=== PATIENT | female | born 1970 | race Caucasian/White ===

== ENCOUNTER → 2017-03-24 | Outpatient (CLI) | payer BC ==
--- NOTE | 2017-03-25 09:37 | MM ---
Reason for exam: screening (asymptomatic). Baseline mammogram. Physical Findings: Nurse did not find any significant physical abnormalities on exam. MG Screening Mammo w CAD Bilateral CC and MLO view(s) were taken. The breast tissue is heterogeneously dense. This may lower the sensitivity of mammography. Partially visualized generator device left chest wall. Nodular asymmetry central right breast seen on MLO view. These results were verbally communicated with the patient and result sheet given to the patient on 03/24/17. ASSESSMENT: Incomplete: need additional imaging evaluation, BI-RAD 0 RECOMMENDATION: Special view mammogram of the right breast. If lesion persists on supplemental views, image directed ultrasound is recommended. [facility] will attempt to contact patient to return for supplemental views and ultrasound if indicated.
--- NOTE | 2017-03-25 09:39 | MM ---
Reason for exam: additional evaluation requested from abnormal screening. Physical Findings: Breast exam preformed at baseline screening. MG Work Up Mamm w CAD RT LM and spot compression MLO view(s) were taken of the right breast. The breast tissue is heterogeneously dense. This may lower the sensitivity of mammography. The questioned nodular asymmetry becomes less defined. A precautionary 6 month follow up is recommended. These results were verbally communicated with the patient and result sheet given to the patient on 03/24/17. ASSESSMENT: Probably benign, BI-RAD 3 RECOMMENDATION: Follow-up diagnostic mammogram of the right breast in 6 months.
== END | disposition home or self-care (01) ==
LOC: RADMAMWWP 13:43
PROVIDERS: ATTEND Obstetrics & Gynecology
DX: Z12.31 Encounter for screening mammogram for malignant neoplasm of breast (principal); R92.8 Other abnormal and inconclusive findings on diagnostic imaging of breast
CPT/HCPCS: G0202; G0206

== ENCOUNTER → 2017-03-31 | Outpatient (CLI) | payer BC | END | disposition home or self-care (01) | LOC: LABWHC1 11:31 | PROVIDERS: ATTEND Obstetrics & Gynecology | DX: Z13.220 Encounter for screening for lipoid disorders (principal); Z13.1 Encounter for screening for diabetes mellitus | CPT/HCPCS: 36415; 80061; 82947; 84439; 84443 ==

== ENCOUNTER → 2019-11-07 | Outpatient (CLI) | payer BC ==
--- NOTE | 2019-11-12 09:26 | MM ---
Reason for exam: screening (asymptomatic). Last mammogram was performed 2 years and 7 months ago. Physical Findings: A clinical breast exam by your physician is recommended on an annual basis and results should be correlated with mammographic findings. MG Screening Mammo w CAD Bilateral CC and MLO view(s) were taken. Prior study comparison: March 24, 2017, bilateral MG screening mammo w CAD. March 24, 2017, right breast MG work up mamm w CAD RT. The breast tissue is heterogeneously dense. This may lower the sensitivity of mammography. No suspicious abnormality. No significant changes when compared with prior studies. ASSESSMENT: Negative, BI-RAD 1 RECOMMENDATION: Routine screening mammogram of both breasts in 1 year.
== END ==
LOC: RADMAMWWP 11:35
PROVIDERS: ATTEND Family Medicine
DX: Z12.31 Encounter for screening mammogram for malignant neoplasm of breast (principal)
CPT/HCPCS: 77067

== ENCOUNTER 2020-04-25 18:49 | Emergency (ER) | payer BC ==
[2020-04-25] MEDS ORDERED: IBUPROFEN 600 MG TAB PO STA (19:22)
--- NOTE | 2020-04-25 20:05 | XR ---
EXAMINATION TYPE: XR ankle complete bilateral DATE OF EXAM: 04/25/2020 COMPARISON: NONE HISTORY: Ankle pain TECHNIQUE: 3 views each ankle FINDINGS: The left ankle joint appears intact. There is soft tissue swelling over the lateral malleol us of the left ankle. There is a trimalleolar fracture of the right ankle. There is posterior dislocation of the talus on t he lateral view. There is an Achilles calcaneal spur. There are small plantar calcaneal spur. IMPRESSION: There is posterior fracture dislocation of the right ankle with trimalleolar fracture. No fracture seen of the left ankle.
[2020-04-25] MEDS ORDERED: PROPOFOL 10 MG/ML 20 ML VIAL IV ONE (20:31)
[2020-04-25] MEDS ORDERED: MORPHINE SULFATE 4 MG/ML SYRINGE IVP STA (20:34)
--- NOTE | 2020-04-25 20:37 | ED ---
Lower Extremity Injury HPI <Arian Masterson - Last Filed: 04/25/20 21:52> - General Source: patient Mode of arrival: wheelchair Limitations: physical limitation <Nohemi Hargrove - Last Filed: 04/25/20 23:37> - General Chief Complaint: Extremity Injury, Lower Stated Complaint: Fall, R Leg Pain Time Seen by Provider: 04/25/20 19:00 - History of Present Illness Initial Comments: Patient is a 49-year-old female presenting to emergency Department with complaints of bilateral ankle pain after slipping off 2 steps prior to arrival. Patient is complaining of mild left ankle pain but mostly right sided ankle pain. Patient states she was able to bear weight slightly on the left side. She rates her pain 6/10. She denies hitting her head, she has no other complaints from this fall. She denies being on blood thinners. She denies any previous ankle fractures or surgeries. She has no further complaints at this time. (Nohemi Hargrove) - Related Data Previous Rx's Medication Instructions Recorded Hydrocodone/Acetaminophen [[place] 1 tab PO Q6HR PRN #10 tab 04/25/20 5-325] Allergies Allergy/AdvReac Type Severity Reaction Status Date / Time No Known Allergies Allergy Verified 04/25/20 18:54 Review of Systems ROS Other: All systems not noted in ROS Statement are negative. <Arian Masterson - Last Filed: 04/25/20 21:52> ROS Other: All systems not noted in ROS Statement are negative. <Nohemi Hargrove - Last Filed: 04/25/20 23:37> ROS Statement: Those systems with pertinent positive or pertinent negative responses have been documented in the HPI. Past Medical History Past Medical History: No Reported History History of Any Multi-Drug Resistant Organisms: None Reported Past Surgical History: Tubal Ligation Past Psychological History: No Psychological Hx Reported Smoking Status: Former smoker Past Alcohol Use History: Daily Past Drug Use History: None Reported <Nohemi Hargrove - Last Filed: 04/25/20 23:37> General Exam Limitations: physical limitation <Nohemi Hargrove - Last Filed: 04/25/20 23:37> - General Exam Comments Initial Comments: GENERAL: Well-appearing, well-nourished and in no acute distress. HEAD: Atraumatic, normocephalic. EYES: Pupils equal round and reactive to light, extraocular movements intact, sclera anicteric, conjunctiva are normal. ENT: TMs normal, nares patent, oropharynx clear without exudates. Moist mucous membranes. NECK: Normal range of motion, supple without lymphadenopathy or JVD. LUNGS: Breath sounds clear to auscultation bilaterally and equal. No wheezes rales or rhonchi. HEART: Regular rate and rhythm without murmurs, rubs or gallops. ABDOMEN: Soft, nontender, normoactive bowel sounds. No guarding, no rebound. No masses appreciated. : Deferred EXTREMITIES: Mild pain with palpation of the left lateral ankle, over the lateral malleolus. There is some mild swelling to this area. Patient has full normal range of m otion of the left ankle with mild pain at the end ranges. She is neurovascular intact on the left. The right ankle has significant swelling around the lateral malleolus as well as anterior ankle. Pain with palpation over the distal fibula and anterior ankle. She has no range of motion secondary to pain. She is neurovascular intact on the right ankle as well. No clubbing or cyanosis. NEUROLOGICAL: Normal speech. PSYCH: Normal mood, normal affect. SKIN: Warm, Dry, normal turgor, no rashes or lesions noted. (Nohemi Hargrvoe) Course Vital Signs 04/25/20 04/25/20 04/25/20 18:49 21:35 21:40 Temperature 98.1 F Pulse Rate 75 70 82 Respiratory 18 18 17 Rate Blood Pressure 111/68 125/71 127/75 O2 Sat by Pulse 98 98 98 Oximetry 04/25/20 04/25/20 04/25/20 21:42 21:45 21:50 Temperature Pulse Rate 80 73 72 Respiratory 18 16 17 Rate Blood Pressure 124/76 127/78 146/67 O2 Sat by Pulse 99 98 100 Oximetry 04/25/20 04/25/20 04/25/20 21:55 22:00 22:55 Temperature 98.0 F Pulse Rate 72 78 72 Respiratory 17 18 18 Rate Blood Pressure 142/74 134/78 141/71 O2 Sat by Pulse 100 98 99 Oximetry Procedures - Procedural Sedation Procedural Sedation Start Time: 21:40 Procedural Sedation Stop Time: 21:45 Indications: fracture/dislocation reduction ASA Class: II Mallampati Airway Score: 3 Preparation: batch freezer operator applied, pulse oximeter, capnometry used, supplemental O2 applied, reversal agents at bedside, suction/airway equipment at bedside, IV secured IV Propofol Dose (mgs): 150 Complications: none Patient Tolerated Procedure: well <Arian Masterson - Last Filed: 04/25/20 21:52> - Orthopedic Joint Reduction Joint #1 Consent Obtained: verbal consent, written consent Side: right Joint Reduction Location: ankle Analgesia: procedural sedation Technique Used: direct manipulation Post-Reduction Neuro Exam: intact Post-Reduction Vascular Exam: intact Post Reduction X-Ray Obtained: Yes (Satisfactory reduction of the fracture) Post Reduction X-Ray Results: reduced Splint Applied: Yes (Posterior splint) Patient Tolerated Procedure: well - Orthopedic Splinting/Casting Injury #1 Side: right Lower Extremity Injury Location: ankle Lower Extremity Immobilizer: posterior splint, Goldy wrap, synthetic pre-padded splint <Nohemi Hargrove - Last Filed: 04/25/20 23:37> Medical Decision Making <Nohemi Hargrove - Last Filed: 04/25/20 23:37> - Medical Decision Making Patient is a 49-year-old female presenting with bilateral ankle pain after slipping down 2 steps. She denies hitting her head, no other complaints of pain. X-rays of bilateral ankles reveal a trimall fracture of the right ankle with a posterior dislocation of the talus. The left ankle appears intact, no fractures. Conscious sedation was used to reduce the right ankle. Postreduction films show a successful reduction. Patient continues to be neurovascular intact post reduction. Patient tolerated procedure well. Patient was placed in a posterior splint, will be nonweightbearing, and will follow up with orthopedics Tuesday morning. I did discuss case with Dr. Pardo who is in agreement with this plan of care. Patient will be sent home with analgesics. Patient is in agreement with this plan of care. Return parameters were discussed with the patient and she verbalized understanding. Case discussed with Dr. Masterson. (Nohemi Hargrove) Disposition <Arian Masterson - Last Filed: 04/25/20 21:52> Is patient prescribed a controlled substance at d/c from ED?: Yes When asked, does pt state using other controlled substances?: No If prescribed controlled substance>3 days was MAPS reviewed?: Prescribed <3 Days If opioid is for acute pain is fill amount 7 days or less?: Yes If Rx opioid, was Start Talking consent form obtained?: Yes <Nohemi Hargrove - Last Filed: 04/25/20 23:37> Clinical Impression: Closed trimalleolar fracture of right ankle, Dislocation of ankle, right, closed, Moderate left ankle sprain Disposition: HOME SELF-CARE Condition: Stable Instructions (If sedation given, give patient instructions): Ankle Fracture (ED), Moderate Sedation (ED) Additional Instructions: Please return to the Emergency Department if symptoms worsen or any other concerns. Leave splint in place until follow-up with orthopedics. Elevate right leg above heart level, ice to the area. May take Motrin and alternate with Tylenol for further pain control. Follow up with orthopedics on Tuesday morning as discussed. Prescriptions: Hydrocodone/Acetaminophen [[place] 5-325] 1 tab PO Q6HR PRN #10 tab PRN Reason: Pain Referrals: Celina Linda MD [Primary Care Provider] - 1-2 days
--- NOTE | 2020-04-25 22:09 | XR ---
EXAMINATION TYPE: XR ankle limited RT DATE OF EXAM: 04/25/2020 COMPARISON: Today HISTORY: Post reduction TECHNIQUE: 2 views FINDINGS: 2 views through the splint show anatomic reduction of the ankle joint. There is trimalleola r fracture of the ankle with fragments in good anatomic position. IMPRESSION: Satisfactory reduction of the fracture.
[2020-04-25] MEDS ORDERED: traMADol 50 MG STARTER PACK 3 TAB BTL PO STA (22:13)
[2020-04-25 22:19] VITALS: RESP 18
[2020-04-25 22:56] VITALS: BP 141/71; PULSE 72; TEMP 98
== END 2020-04-25 22:56 | disposition home or self-care (01) ==
LOC: EC 18:49
DX: S82.851A Displaced trimalleolar fracture of right lower leg, initial encounter for closed fracture (principal); S93.402A Sprain of unspecified ligament of left ankle, initial encounter; Z87.891 Personal history of nicotine dependence; W01.0XXA Fall on same level from slipping, tripping and stumbling without subsequent striking against object, initial encounter; Y92.009 Unspecified place in unspecified non-institutional (private) residence as the place of occurrence of the external cause
CPT/HCPCS: 73610; 73600; 99283; 27818; 96374; J2270; J2704

== ENCOUNTER → 2020-05-02 | Outpatient (CLI) | payer BC ==
--- NOTE | 2020-05-02 14:30 | CT ---
EXAMINATION TYPE: CT ankle RT wo con DATE OF EXAM: 05/02/2020 COMPARISON: X-rays of the right ankle dated 04/25/2020 HISTORY: displaced trimalleolar fx rt ankle CT DLP: 256.7 mGycm Automated exposure control for dose reduction was used. TECHNIQUE: Contiguous axial CT slices were obtained of the right ankle with coronal and sagittal refo rmats obtained for review. 3-D post processed images were also obtained in bone algorithm and submitt ed for review graded at a separate workstation. FINDINGS: There is a known trimalleolar fracture of the right ankle. The posterior malleolar fracture is commin uted with intra-articular extension and 6 mm foreshortening. A fragment is seen on sagittal image 17 and coronal image 30 extending into the intra-articular space. The medial malleolus fracture is comm inuted with intra-articular extension and 5 mm foreshortening. The fibular fracture is obliquely orie nted with 8 mm foreshortening and mild comminution. There is medial joint space widening measuring 6 mm with no lateral joint space widening. Talar dome is intact. Posterior talus as slightly tilted wit h the lateral talar dome closely opposed to the tibia and anteriorly the medial talar dome is closely opposed to the tibia. Punctate well-corticated fragment is seen medial to the talus on axial image 7 2 with surrounding fluid although no donor site is seen. Small ossicle adjacent to the cuboid bone an d mild degenerative change of the dorsal talonavicular. Very small plantar and calcaneal heel spurs. Indeterminate sclerotic lesion of the base of the second metatarsal measures 6 mm. Ligament and tendons are limited on CT and further limited by soft tissue swelling. There is circumfe rential soft tissue tissue swelling of the ankle joint and low ankle joint more pronounced laterally than medially. MRI could evaluate ligaments and tendons if clinically indicated. IMPRESSION: Right ankle trimalleolar fracture as detailed above.
== END | disposition home or self-care (01) ==
LOC: RADCTMAIN 12:11
PROVIDERS: ATTEND Orthopaedic Surgery
DX: S82.851A Displaced trimalleolar fracture of right lower leg, initial encounter for closed fracture (principal)

== ENCOUNTER 2020-05-08 06:16 | Day surgery (SDC) | payer BC ==
[2020-05-06 15:21] VITALS: BMI 30.4
[2020-05-08 06:47] VITALS: RESP 16
[2020-05-08] MEDS ORDERED: LIDOCAINE 1% (10MG/ML) FOR IV START INTRADERMA ONE (07:00)
[2020-05-08] MEDS ORDERED: LACTATED RINGERS 1,000 ML IV ONE ×2 (07:00→08:15)
[2020-05-08] MEDS ORDERED: MIDAZOLAM 2 MG/2 ML VIAL IVP ONE (07:08)
[2020-05-08] MEDS ORDERED: fentaNYL (PF) 50 MCG/ML 2 ML AMP IVP ONE (07:08)
[2020-05-08] MEDS ORDERED: DEXAMETHASONE SOD PHOSPHATE 4 MG/ML 1 ML VIAL ONE (07:25)
[2020-05-08] MEDS ORDERED: ONDANSETRON 4 MG/2 ML VIAL ONE (07:25)
[2020-05-08] MEDS ORDERED: fentaNYL (PF) 50 MCG/ML 2 ML AMP ONE (07:25)
[2020-05-08] MEDS ORDERED: SUCCINYLCHOLINE CHLORIDE 100 MG/5 ML SYR IV ONE (07:25)
[2020-05-08] MEDS ORDERED: DEXAMETHASONE SOD PHOSPHATE 10 MG/ML 1 ML VIAL ONE (07:25)
[2020-05-08] MEDS ORDERED: MIDAZOLAM 2 MG/2 ML VIAL ONE (07:25)
[2020-05-08] MEDS ORDERED: PROPOFOL 10 MG/ML 20 ML VIAL IV ONE (07:25)
[2020-05-08] MEDS ORDERED: LIDOCAINE 1% INJ 10MG/ML (20 ML MDV) ONE (07:25)
[2020-05-08] MEDS ORDERED: ROPIVACAINE 5 MG/ML 30 ML VIAL ONE (07:25)
[2020-05-08] MEDS ORDERED: HYDROmorphone (PF) 1 MG/ML ONE (07:25)
--- NOTE | 2020-05-08 09:35 | P.ANPRN ---
Procedure Note - Anesthesia - Nerve Block Performed Right Popliteal Single Time Out Performed: Yes (705) Date of Procedure: 05/08/20 Procedure Start Time: 07:06 Procedure Stop Time: 07:10 Location of Patient: PreOp Indication: Acute Post-Operative Pain, Requested by Surgeon Specifically requested for management of pain by DrJulianne: Johnny Key Sedation Type: Sedate with meaningful contact maintained Preparation: Sterile Prep Position: Left Lateral Catheter: None Needle Types: Pajunk Needle Gauge: 21 Ultrasound used to visualize needle placement: Yes Ultrasound used to observe medication spread: Yes Injectate: 0.5% Ropivacaine (see comment for volume) (15cc with decadron 4) Blood Aspirated: No Pain Paresthesia on Injection Noted: No Resistance on Injection: Normal Image Stored and Saved: Yes Events: Uneventful and Well Tolerated Right Adductor Canal Single Time Out Performed: Yes (705) Date of Procedure: 05/08/20 Procedure Start Time: 07:11 Procedure Stop Time: 07:16 Location of Patient: PreOp Indication: Acute Post-Operative Pain, Requested by Surgeon Specifically requested for management of pain by Dr.: Johnny Key Sedation Type: Sedate with meaningful contact maintained Preparation: Sterile Prep Position: Supine Catheter: None Needle Types: Pajunk Needle Gauge: 20 Ultrasound used to visualize needle placement: Yes Ultrasound used to observe medication spread: Yes Injectate: 0.5% Ropivacaine (see comment for volume) (15cc wtih decadron 4) Blood Aspirated: No Pain Paresthesia on Injection Noted: No Resistance on Injection: Normal Image Stored and Saved: Yes Events: Uneventful and Well Tolerated
--- NOTE | 2020-05-08 09:41 | P.OP ---
Date of Procedure: 05/08/20 Preoperative Diagnosis: 1. Closed right trimalleolar ankle fracture dislocation Postoperative Diagnosis: Same Procedure(s) Performed: 1. Open reduction and internal fixation of lateral and medial malleolus, nonoperative management posterior malleolus 2. Application of joint stress by physician for radiography, right ankle 3. Application of short-leg splint by physician, right ankle Anesthesia: girish FAIRCHILD Surgeon: Johnny Key Country Printer #1: Alden Ray Estimated Blood Loss (ml): 10 IV fluids (ml): 1,200 Pathology: none sent Condition: stable Disposition: PACU Indications for Procedure: The patient is very pleasant 49-year-old female who sustained a right ankle fracture dislocation after a fall. She was seen in the emergency department where closed reduction was performed. She was placed in a splint and follow-up was arranged in our office. Prior to seeing me in the office the patient was contacted and a computed tomography scan was obtained. I met with the patient earlier this week and examined her ankle. There was wrinkling of the skin. We discussed the need for surgical stabilization. She understands this and we had along discussion on the potential risks and complications of surgery including but certainly not limited to risk of anesthesia, infection, damage to local blood vessels or nerves, nonunion, malunion, malreduction of the ankle mortise or syndesmosis, DVT, PE, other medical complications, and inability to regain preinjury level of function, systematic hardware, posttraumatic arthritis, need for further surgery, and possibly loss of life or limb. The patient voiced her understanding of these potential complications and also acknowledges that other less common complications are possible. She provided her verbal and written consent to go forward with surgery. Description of Procedure: The patient was identified in preoperative holding and the correct right leg was marked with my initials. I reviewed the consent form with the patient and her daughter. All of their questions were answered. The patient was given a block by anesthesia. The patient was then brought back to the operating room. She was transferred to the OR table where general anesthetic and preoperative antibiotics were given. A bump was placed under the right buttock internally rotating the leg to neutral. A tourniquet was applied to the proximal aspect of the right thigh. A ramp was placed in the right leg to facilitate intraoperative imaging. The right leg was then prepped and draped in standard sterile fashion. Prior to starting surgery timeout was performed identifying the correct patient, operative extremity, and procedure. The patient's leg was then elevated, exsanguinated with an Esmarch bandage, and the tourniquet was inflated to 250 mmHg. I began by performing a straight lateral approach to the distal fibula. Skin incision was made with a scalpel. Dissection was carried down carefully through subcutaneous tissue with tenotomy scissors. A branch of the superficial peroneal nerve was identified and carefully retracted. The fascia over the peroneal muscles proximally and the periosteum over the fibula distally was incised in line with the skin incision. The fracture site was identified. A scalpel and small pituitary rongeur was used to debride the fracture site to allow a cortical reduction. I gently reduced the fracture and it was held with a dcfcx-bo-yeyoy reduction clamp. Clinically the fracture fragments keyed in nicely although there was a small amount of comminution posteriorly. The reduction was verified with fluoroscopy. I then placed a 2.4 mm lag screw from anterior to posterior across the fracture generating excellent compression. A one third tubular leg was then placed laterally to use as a neutralization construct. Nonlocking 3.5 mm screws were placed proximally and distally. Attention was then turned to the medial malleolus. The posteromedial fragment appeared to be displaced with a "double density" sign. A posterior medial approach was performed. The sheath of the posterior tibialis tendon was identified, incised and the tendon carefully retracted. The postero-medial fragment was identified. It was booked open and comminution and joint debris was removed from the joint. I was then able to sheehan the proximal spike into place. This was held with a 0.0625 K wire. A 2.7 mm small fragment plate was then placed over the fracture. Proximally nonlocking 2.7 mm screws were placed and distally a 2.7 mm lag screw was placed through the plate generating excellent compression. There was still slight widening of the medial clear space so a 4 cortices syndesmotic screw was placed through the plate. Final fluoroscopic images were taken. There was no widening of the medial clear space or incisura. I interpreted this as a stable ankle mortise. A lateral view showed no posterior subluxation of the talus. Both wounds were then thoroughly irrigated and closed in layers. A well-padded bulky Meraz splint was placed with the ankle at neutral. The patient was awoken from her anesthetic, transferred from the OR table to the [facility], and brought to recovery having tolerated the procedure well. Alden Ray PA-C was required as a skilled embroidery assistant for patient positioning, exposure, retraction, reduction of fracture, placement of hardware, closure of wounds, and application of splint. Plan: The patient is going to discharge home as an outpatient. She is to remain nonweightbearing on her right leg. She'll be given a prescription for oral narcotic pain medications, a stool softener, and aspirin for DVT prophylaxis. She will need follow-up in the office in 2 weeks for splint removal, wound check, and nonweightbearing x-rays of the right ankle.
--- NOTE | 2020-05-08 09:44 | XR ---
EXAMINATION TYPE: XR ankle limited RT DATE OF EXAM: 05/08/2020 COMPARISON: NONE TECHNIQUE: 6 views submitted HISTORY: Post op FINDINGS: There is postsurgical change in near anatomic alignment. There is soft tissue edema. IMPRESSION: 1. Postoperative change. Appears in near-anatomic alignment
--- NOTE | 2020-05-08 10:03 | FL ---
Fluoroscopy INDICATION: Pain FINDINGS: Fluoroscopy time: 94 seconds. Images obtained: 6. IMPRESSIONS: 1. Documentation of fluoroscopy.
[2020-05-08 10:04] VITALS: TEMP 96.8
[2020-05-08] MEDS ORDERED: HYDROmorphone 1 MG/ML 1 ML SYRINGE IVP ONE (10:10)
[2020-05-08] MEDS ORDERED: oxyCODONE-APAP 5-325MG 1 EACH TAB PO ONE (11:04)
[2020-05-08 11:33] VITALS: PULSE 86
[2020-05-08 11:54] VITALS: BP 122/74
== END 2020-05-08 12:41 | disposition home or self-care (01) ==
LOC: OR 06:16
PROVIDERS: ATTEND Orthopaedic Surgery
DX: S82.851A Displaced trimalleolar fracture of right lower leg, initial encounter for closed fracture (principal); W17.89XA Other fall from one level to another, initial encounter; K21.9 Gastro-esophageal reflux disease without esophagitis; Z87.891 Personal history of nicotine dependence; Z98.51 Tubal ligation status; Z97.3 Presence of spectacles and contact lenses; Z79.899 Other long term (current) drug therapy
CPT/HCPCS: 27822; 64447; 64450; 76942; 73600; C1713; J2250; J1100 ×2; J0690; J2405; J2001; J3010; J1170; J2795; J0330; J2704

== ENCOUNTER → 2021-07-17 | Outpatient (CLI) | payer BC ==
--- NOTE | 2021-07-17 13:24 | US ---
EXAMINATION TYPE: US venous doppler duplex LE RT DATE OF EXAM: 07/17/2021 1:11 PM COMPARISON: NONE CLINICAL HISTORY: I80.9 Phlebitis and thrombophlebitis of unspecified site. Pt states right ankle swe lling s/p ankle fracture and surgery last year/ no known prior DVT SIDE PERFORMED: Right TECHNIQUE: The lower extremity deep venous system is examined utilizing real time linear array sonog johanna with graded compression, doppler sonography and color-flow sonography. VESSELS IMAGED: Common Femoral Vein Deep Femoral Vein Greater Saphenous Vein * Femoral Vein Popliteal Vein Small Saphenous Vein * Proximal Calf Veins (* superficial vessels) Right Leg: Negative for DVT Results called to Nohemi at Dr's office at time of exam Grayscale, color doppler, spectral doppler imaging performed of the deep veins of the right lower ext remity. There is normal flow, compressibility, vascular waveforms. IMPRESSION: No ultrasound evidence for acute DVT in the right lower extremity.
== END | disposition home or self-care (01) ==
LOC: RADUSWWP 12:49
PROVIDERS: ATTEND Orthopaedic Surgery
DX: R22.41 Localized swelling, mass and lump, right lower limb (principal)

== ENCOUNTER → 2021-07-17 | Outpatient (CLI) | payer BC ==
--- NOTE | 2021-07-21 08:14 | MM ---
Reason for exam: screening (asymptomatic). Last mammogram was performed 1 year and 8 months ago. History: Took hormonal contraceptives for 2 years. Physical Findings: A clinical breast exam by your physician is recommended on an annual basis and results should be correlated with mammographic findings. MG Screening Mammo w CAD Bilateral CC and MLO view(s) were taken. Prior study comparison: November 07, 2019, bilateral MG screening mammo w CAD. March 24, 2017, right breast MG work up mamm w CAD RT. The breast tissue is heterogeneously dense. This may lower the sensitivity of mammography. Areas of bilateral asymmetric density are unchanged. No significant changes when compared with prior studies. ASSESSMENT: Benign, BI-RAD 2 RECOMMENDATION: Routine screening mammogram of both breasts in 1 year. Patient should continue monthly self breast exams. A negative report should not preclude additional follow up of suspicious palpable abnormalities.
== END | disposition home or self-care (01) ==
LOC: RADMAMWWP 12:52
PROVIDERS: ATTEND Family Medicine
DX: Z12.31 Encounter for screening mammogram for malignant neoplasm of breast (principal)
CPT/HCPCS: 77067

== ENCOUNTER 2021-07-24 06:47 | Day surgery (SDC) | payer BC ==
[2021-07-22 13:23] VITALS: BMI 31.3
[~2021-07-24 06:47] MED LIST: LACTATED RINGERS 1,000 ML IV SCH; LIDOCAINE 1% (10MG/ML) FOR IV START INTRADERMA PRN
[2021-07-24 07:32] VITALS: RESP 16; TEMP 98.2
[2021-07-24] MEDS ORDERED: PROPOFOL 10 MG/ML 20 ML VIAL IV ONE (08:00)
[2021-07-24] MEDS ORDERED: LIDOCAINE 2% SYG (PF) 100 MG/5 ML ONE (08:00)
--- NOTE | 2021-07-24 08:38 | P.PCN ---
Date of Procedure: 07/24/21 Procedure(s) Performed: Brief history: Patient is a pleasant 50-year-old white female scheduled for an elective upper endoscopy as well as colonoscopy as a part of evaluation of GERD and screening for colon cancer Procedure performed: Esophagogastroduodenoscopy Colonoscopy with biopsy and snare polypectomy Preoperative diagnosis: GERD Screening for colon cancer Anesthesia: MAC Procedure: After informed consent was obtained from the patient was brought into the endoscopy unit and IV sedation was administered by anesthesia under continuous monitoring. Initially upper endoscopy was done. The Olympus GF 160 video endoscope was inserted inserted into the mouth and esophagus intubated without any difficulty and was gradually advanced into the stomach and duodenum and carefully examined. The bulb and second part of the duodenum appeared normal. The scope was then withdrawn into the stomach adequately insufflated with air and upon careful examination the antrum and mild gastritis and biopsies were done from this area. The body, cardia and fundus appeared normal. The scope was then withdrawn into the esophagus. The GE junction was located at 35 cm to the incisors. small hiatal hernia noted. It appeared regular with no erythema erosions or ulcerations. Rest of the esophagus appeared normal. Patient tolerated the procedure well. At this time the patient continued to remain sedation. Initial digital rectal examination was normal. Olympus CF 160 video colonoscope was then inserted into the rectum and gradually advanced to the cecum without any difficulty. Careful examination was performed as the scope was gradually being withdrawn. The prep was excellent. In the cecum there was a 3 mm polyp that was removed by cold biopsy. Descending colon there was a 2 mm and 3 mm polyp removed by cold biopsy. In the hepatic flexure there were 23 mm polyps removed by cold biopsy. In the transverse colon there was a 5 mm and 7 mm polyp 2 removed by snare polypectomy. Rest of the, descending colon, sigmoid colon and rectum appeared normal. Retroflexion was performed in the rectum and no lesions were noted. Patient tolerated the procedure well. Impression: 1. Upper endoscopy revealed mild antral gastritis and small hiatal hernia 2. Colonoscopy revealed 5 mm and 7 mm transverse colon polyp status post polypectomy 3 mm cecal polyp status post biopsy 2 mm 3 mm ascending colon polyp status post biopsy 3 mm 2 hepatic flexure polyp status post biopsy: Recommendations: Findings of this examination were discussed with the patient as well as appendectomy. She was advised to follow with the biopsy results. She will continue with omeprazole 20 mg daily before dinner and follow antirefluxShe was advised to follow with the biopsy results. If the biopsy reveals adenoma she can have a repeat colonoscopy in 3 years.
[2021-07-24 08:55] VITALS: BP 124/80; PULSE 68
== END 2021-07-24 09:31 | disposition home or self-care (01) ==
LOC: ORWHC2ENDO 06:47
PROVIDERS: ATTEND Internal Medicine Gastroenterology
DX: K29.50 Unspecified chronic gastritis without bleeding (principal); K44.9 Diaphragmatic hernia without obstruction or gangrene; D12.0 Benign neoplasm of cecum; D12.2 Benign neoplasm of ascending colon; D12.3 Benign neoplasm of transverse colon; D12.4 Benign neoplasm of descending colon; Z86.010 Personal history of colon polyps; K21.9 Gastro-esophageal reflux disease without esophagitis; Z98.890 Other specified postprocedural states
CPT/HCPCS: 45385; 43239; 81025; 88305; J2001; J2704

== ENCOUNTER → 2023-06-08 | Outpatient (CLI) | payer OTHER ==
--- NOTE | 2023-06-09 08:48 | MM ---
Reason for Exam: Screening (asymptomatic). Last mammogram was performed 1 year(s) and 11 month(s) ago. Patient History: Menarche at age 11. First Full-Term at age 16. Patient has history of breast feeding. Patient used Hormonal Contraceptives for 2 years. Risk Values: Irish 5 year model risk: 0.8%. NCI Lifetime model risk: 6.2%. Prior Study Comparison: 03/24/2017 Right Diagnostic Mammogram, [facility]. 11/07/2019 Bilateral Screening Mammogram, [facility]. 07/17/2021 Bilateral Screening Mammogram, [facility]. Tissue Density: The breast tissue is heterogeneously dense. This may lower the sensitivity of mammography. Findings: Analyzed By CAD. There is no suspicious group of microcalcifications or new suspicious mass in either breast. Overall Assessment: Negative, BI-RAD 1 Management: Screening Mammogram of both breasts in 1 year. . Patient should continue monthly self-breast exams. A clinical breast exam by your physician is recommended on an annual basis. This exam should not preclude additional follow-up of suspicious palpable abnormalities. Note on Irish scores and lifetime risk: 1. A Riish score greater than 3% is considered moderate risk. If this is the case, consider specialist referral to assess eligibility for a risk reducing agent. 2. If overall lifetime risk for the development of breast cancer is 20% or higher, the patient may qualify for future screening with alternating mammogram and breast MRI. Electronically signed and approved by: Mannie Pemberton M.D. Radiologis
== END | disposition home or self-care (01) ==
LOC: RADMAMWWP 07:53
PROVIDERS: ATTEND Family Medicine
DX: Z12.31 Encounter for screening mammogram for malignant neoplasm of breast (principal)
CPT/HCPCS: 77067

== ENCOUNTER → 2024-06-12 | Outpatient (CLI) | payer OTHER ==
--- NOTE | 2024-06-14 15:05 | MM ---
Reason for Exam: Screening (asymptomatic). Last screening mammogram was performed 12 month(s) ago. Patient History: Menarche at age 11. First Full-Term at age 16. Patient has history of breast feeding. Patient used Hormonal Contraceptives for 2 years. Risk Values: Irish 5 year model risk: 0.8%. NCI Lifetime model risk: 6.1%. Prior Study Comparison: 11/07/2019 Bilateral Screening Mammogram, [facility]. 07/17/2021 Bilateral Screening Mammogram, [facility]. 06/08/2023 Bilateral MG screening mammo w CAD, [facility]. Tissue Density: There are scattered areas of fibroglandular density. Findings: Analyzed By CAD. The pattern is symmetrical. Pattern appears stable. No suspicious groups of microcalcifications, spiculated or lobular masses, architectural distortion or other secondary signs of malignancy are mammographically apparent. Overall Assessment: Benign, BI-RAD 2 Management: Screening Mammogram of both breasts in 1 year. A negative mammogram report should not preclude additional follow up of suspicious palpable abnormalities. Patient should continue monthly self breast exam. A clinical breast exam by your physician is recommended on an annual basis and results should be correlated with mammographic findings. Note on Irish scores and lifetime risk: 1. A Irish score greater than 3% is considered moderate risk. If this is the case, consider specialist referral to assess eligibility for a risk reducing agent. 2. If overall lifetime risk for the development of breast cancer is 20% or higher, the patient may qualify for future screening with alternating mammogram and breast MRI. Electronically signed and approved by: Andrei Currie D.O. Radiologis
== END | disposition home or self-care (01) ==
LOC: RADMAMWWP 11:32
PROVIDERS: ATTEND Family Medicine
DX: Z12.31 Encounter for screening mammogram for malignant neoplasm of breast (principal); R92.323 Mammographic fibroglandular density, bilateral breasts
CPT/HCPCS: 77067